=== PATIENT | female | born 2005 | race Caucasian/White ===

== ENCOUNTER 2025-05-29 18:30 | Day surgery (SDC) | payer OTHER ==
[2025-05-29] MEDS ORDERED: hydrALAZINE 20 MG/ML VIAL SLOW IVP PRN (19:26)
[2025-05-29 21:36] LABS: Glucose, Urine (Dipstick) Normal (Negative); Leukocyte Negative (Negative); Protein, Urine (Dipstick) Negative (Neg-Trace); Specific Gravity, Urine 1.010 (1.005-1.030)
[2025-05-29] MEDS: Acetaminophen 500 MG TAB PO SCH (21:59)
[2025-05-29 22:03] LABS: Bacteria/HPF None Seen HPF (None Seen); CAUTI Indications for Culture Pregnancy; RBC/HPF None Seen HPF (0-3); WBC/HPF None Seen HPF (0-3)
[2025-05-29 22:04] LABS: Urine Culture Reflex Yes Yes
[2025-05-29] MEDS: NIFEdipine 10 MG CAP PO SCH (23:10)
[2025-05-30 06:29] LABS: Chlamydia by PCR, Vaginal Swab Not Detected (NotDetected); GC by PCR, Vaginal Swab Not Detected (NotDetected)
== END 2025-05-30 01:05 | disposition home or self-care (01) ==
LOC: CSHLD/OP 18:30
PROVIDERS: ATTEND Family Medicine
DX: O47.03 False labor before 37 completed weeks of gestation, third trimester (principal); O23.593 Infection of other part of genital tract in pregnancy, third trimester; N89.8 Other specified noninflammatory disorders of vagina; O26.873 Cervical shortening, third trimester; Z3A.33 33 weeks gestation of pregnancy; Z88.5 Allergy status to narcotic agent; Z79.899 Other long term (current) drug therapy
CPT/HCPCS: 81001; 87086; 87480; 87491; 87510; 87591; 87660; 96360; 99285; J3105

== ENCOUNTER 2025-06-07 20:39 | Day surgery (SDC) | payer OTHER ==
[2025-06-07] MEDS: Cyclobenzaprine 10 MG TAB PO SCH (22:02)
[2025-06-07 22:07] LABS: Fetal Membranes Rupture No Membranes Rupture (No Rupture)
[2025-06-07 22:16] LABS: Glucose, Urine (Dipstick) Normal (Negative); Leukocyte Negative (Negative); Protein, Urine (Dipstick) Negative (Neg-Trace); Specific Gravity, Urine 1.010 (1.005-1.030)
[2025-06-07 22:32] LABS: Bacteria/HPF None Seen HPF (None Seen); CAUTI Indications for Culture Pelvic or flank pain; RBC/HPF None Seen HPF (0-3); WBC/HPF None Seen HPF (0-3)
[2025-06-07 22:33] LABS: Urine Culture Reflex No No
== END 2025-06-08 01:11 | disposition home or self-care (01) ==
LOC: CSHLD/OP 20:39
PROVIDERS: ATTEND Family Medicine
DX: O47.03 False labor before 37 completed weeks of gestation, third trimester (principal); O99.891 Other specified diseases and conditions complicating pregnancy; N89.8 Other specified noninflammatory disorders of vagina; Z3A.35 35 weeks gestation of pregnancy; Z88.5 Allergy status to narcotic agent
CPT/HCPCS: 81001; 84112; 87480; 87510; 87660; 99285

== ENCOUNTER 2025-06-22 01:40 | Day surgery (SDC) | payer OTHER ==
[2025-06-22 01:59] VITALS: BMI 23.1
[2025-06-22] MEDS ORDERED: hydrALAZINE 20 MG/ML VIAL SLOW IVP PRN (02:41)
== END 2025-06-22 04:29 | disposition home or self-care (01) ==
LOC: CSHLD/OP 01:40
PROVIDERS: ATTEND Family Medicine
DX: O47.1 False labor at or after 37 completed weeks of gestation (principal); Z3A.37 37 weeks gestation of pregnancy; Z88.5 Allergy status to narcotic agent; Z79.899 Other long term (current) drug therapy
CPT/HCPCS: 99283

== ENCOUNTER 2025-07-02 04:21 | Inpatient (IN) | payer OTHER ==
[2025-07-02 04:48] VITALS: BMI 23.5
[2025-07-02] MEDS ORDERED: hydrALAZINE 20 MG/ML VIAL SLOW IVP PRN ×2 (09:53→11:27)
[2025-07-02] MEDS ORDERED: Meperidine HCl/PF 25 MG (1 mL) VIAL IM SCH (10:00)
[2025-07-02] MEDS ORDERED: Tranexamic Acid 1,000 MG/10 ML VIAL IVP PRN (11:27)
[2025-07-02] MEDS ORDERED: Diphenoxylate HCl/Atropine Tablet PO PRN (11:27)
[2025-07-02] MEDS ORDERED: Ondansetron PF 4 MG/2 ML Vial IVP PRN ×2 (11:27→13:39)
[2025-07-02] MEDS ORDERED: Methylergonovine 0.2 MG/ML VIAL IM PRN (11:27)
[2025-07-02] MEDS ORDERED: Carboprost 250 MCG/ML AMP IM PRN (11:27)
[2025-07-02] MEDS ORDERED: Lidocaine 1% (PF) 30 ML VIAL SC PRN (11:27)
[2025-07-02] MEDS ORDERED: Acetaminophen 500 MG TAB PO PRN (11:27)
[2025-07-02] MEDS ORDERED: Oxytocin 30 units/NS 500 ML 500 ML IV SCH ×2 (11:30)
[2025-07-02 11:54] LABS: Hematocrit 30.6 % (34.9-44.5); Hemoglobin 9.2 g/dL (12.0-15.5); Mean Corpuscular Hemoglobin 22.8 pg (27.0-33.0); Mean Corpuscular Volume 75.7 fL (81.6-98.3); Platelet Count 199 10x3/uL (150-450); Red Blood Cell (RBC) Count 4.04 10x6/uL (3.90-5.03); White Blood Cell (WBC) Count 11.02 10x3/uL (3.5-10.5)
[2025-07-02 12:28] LABS: Hep B Surf Ag - L&D Non-Reactive S/CO (NonReactive)
[2025-07-02 12:29] LABS: Syphilis Antibody Index 0.04 S/CO (<1.00 Non-Reactive)
[2025-07-02] MEDS: fentaNYL/Ropivacaine Epidural 100 ML ONE (13:15)
[2025-07-02] MEDS ORDERED: Acetaminophen 325 MG TAB PO PRN (13:39)
[2025-07-02] MEDS ORDERED: fentaNYL 2 mcg/Ropivacaine 0.2% Epidural 100 ML CADD EPIDURAL SCH (13:45)
[2025-07-02] MEDS ORDERED: Communication Order-Pharmacy FS SCH (13:45)
[2025-07-02] MEDS: diphenhydrAMINE 50 MG/ML VIAL IVP PRN (18:23)
[2025-07-02] MEDS: Ibuprofen 800 MG TAB PO SCH (23:57)
[2025-07-03] MEDS ORDERED: Benzocaine-Menthol 82.5 ML CAN TOP PRN (00:28)
[2025-07-03] MEDS ORDERED: Milk Of Magnesia 30 ML UDCUP PO PRN (00:28)
[2025-07-03] MEDS ORDERED: Boostrix 0.5 ML (Tdap) VIAL (>/=7 yrs of age) IM ONE (00:28)
[2025-07-03] MEDS ORDERED: Preparation H Ointment 28 GM TUBE PR PRN (00:28)
[2025-07-03] MEDS ORDERED: diphenhydrAMINE 25 MG CAP PO PRN (00:28)
[2025-07-03] MEDS ORDERED: hydrALAZINE 20 MG/ML VIAL SLOW IVP PRN (00:28)
[2025-07-03] MEDS ORDERED: Bisacodyl 10 MG SUPP PR PRN (00:28)
[2025-07-03] MEDS ORDERED: Ondansetron PF 4 MG/2 ML Vial IVP PRN (00:28)
[2025-07-03] MEDS: HYDROcodone/Acetaminophen 5/325 mg Tablet PO PRN (02:20)
[2025-07-03] MEDS: Ferrous Sulfate 325 MG TAB PO SCH (08:10)
[2025-07-03] MEDS: Ibuprofen 800 MG TAB PO SCH (08:10)
[2025-07-04 08:03] VITALS: BP 121/60; TEMP 98.1
== END 2025-07-04 14:45 | disposition home or self-care (01) | DRG 807 ==
LOC: CSHLD/OP 04:21 → CSHLD 11:48 → CSHPP 07-03 00:15
PROVIDERS: ADMIT Family Medicine; ATTEND Family Medicine
PROC: 10E0XZZ Delivery of Products of Conception, External Approach (ICD-10-PCS; principal; 2025-07-02)
PROC: 0UQMXZZ Repair Vulva, External Approach (ICD-10-PCS; 2025-07-02)
PROC: 0UQGXZZ Repair Vagina, External Approach (ICD-10-PCS; 2025-07-02)
DX: O71.4 Obstetric high vaginal laceration alone (principal); Z37.0 Single live birth; Z3A.38 38 weeks gestation of pregnancy; Z79.899 Other long term (current) drug therapy
CPT/HCPCS: 51702; 85027; 86780; 86850; 86900; 86901; 87340; 99285; J1200